=== PATIENT | female | born 1960 | race Native Hawaiian/Other Pacific Islander ===

== ENCOUNTER → 2016-04-10 | Day surgery (SDC) | payer BC ==
[~2016-04-10] MED LIST: ACETAMINOPHEN 1000 MG/100 ML VIAL IV ONE; ALPR.25 PO; AMAR4TAB PO; AMLO10TA2 PO; ASPI81CH3 CHEW; BOTU100P I-DERMAL; BUPIVACAINE/EPINEPHRINE 0.25% 50 ML VIAL ONE; CELE200C PO; FENO50TA PO; FOLI1TAB4 PO; HUMALOG SQ; LACTATED RINGER'S 1000 ML INJ 1,000 ML ONE; LANTUS2P SQ; LEUC10TA; LEVO.125 PO; LEXA20TA PO; LOSA100T PO; M2 M100C PO; MEPERIDINE HCL 25 MG/ML VIAL ONE; METF1000 PO; METH2.5T PO; MIDAZOLAM HCL 2 MG/2 ML VIAL ONE; MULT1TAB46 PO; ONDANSETRON HCL 4 MG/2 ML VIAL IV PUSH ONE; PLAQ200T PO; PROPOFOL 200 MG/20 ML AMP IV ONE; RESP: ALBUTEROL 2.5 MG/3 ML NEB (SCH) ONE; ROSU5 PO; SODIUM CHLOR 0.9% 1000 ML BAG IV ONE; VITA1000 PO; [UNRECOGNIZED DRUG - CODE] PO; ceFAZolin 2 GM PREMIX 50 ML ONE; metroNIDAZOLE 500 MG INJ 100 ML IV ONE; oxyCODONE/ACETAMINOPHEN 5 MG/325 MG TAB ONE
--- NOTE | 2016-04-10 09:35 | TN ---
cc: LUCINA RODRIGUEZ M.D. DATE OF SURGERY: 04/10/2016 PREOPERATIVE DIAGNOSIS 1. Biliary dyskinesia. 2. Non-alcoholic steatohepatitis. POSTOPERATIVE DIAGNOSES 1. Biliary dyskinesia. 2. Non-alcoholic steatohepatitis. PROCEDURE 1. Laparoscopic cholecystectomy. 2. Laparoscopic-assisted liver biopsy. SURGEON Dr. Lucina Rodriguez ANESTHESIA General. HIDE OR SKIN BUFFER Celeste Mcogvern, MANAGER E [employer] INDICATIONS This is a pleasant 55-year-old woman who has had several episodes of pain in the back that she believes were made worse by foods that she ate, specifically fatty foods. An ultrasound was normal. A HIDA scan reproduced similar yet less intense symptoms and her ejection fraction was minimal. Prior CT scan was negative. Dr. Francisco J Andrade has seen her and recommends surgical evaluation for laparoscopic cholecystectomy and liver biopsy for known history of steatohepatitis. INTRAOPERATIVE FINDINGS Gallbladder without significant inflammatory adhesions removed and sent to pathology. [place] liver biopsy specimens sent for permanent pathology. ESTIMATED BLOOD LOSS Less than 10 mL. DESCRIPTION OF PROCEDURE IN DETAIL The patient was identified as Rowan Prieto, taken to the operating room and placed in supine position. Sequential compression devices were placed on bilateral lower extremities. Following induction of adequate general endotracheal anesthesia the patient's abdomen was prepped and draped in the usual sterile fashion with Betadine. A timeout procedure was performed. Following completion of the timeout procedure to everyone's satisfaction within the room, 0.25% Marcaine with epinephrine was placed at each incision site. A small transverse supraumbilical incision was made with a scalpel. Dissection continued posteriorly to the level of the midline fascia in the supraumbilical position. The base of the umbilicus was retracted anteriorly. The fascia was incised in a vertical fashion allowing for entry into the peritoneal cavity with the surgeon's finger. The [employer] balloon Willy trocar was placed in the peritoneal cavity, its balloon inflated with CO2 insufflation until a level of 15 mmHg ensued. The patient was placed in a reverse Trendelenburg position turned to the left and two upper abdominal 5 mm trocars were placed in the peritoneal cavity under direct laparoscopic view after incision of the skin with a scalpel. The gallbladder is immediately identified. There were no inflammatory adhesions. The gallbladder is retracted superiorly and anteriorly. The gallbladder was then removed from the gallbladder fossa in the dome-down technique using the Harmonic scalpel. A nice peritoneal plane was identified which allowed for smooth removal of the gallbladder from the gallbladder fossa. Down at the gallbladder cystic duct junction there was excess fatty tissue which was carefully dissected through to allow for identification of cystic arterial branch which was divided with the Harmonic scalpel and the cystic duct which was isolated from surrounding tissues, ligated proximally and distally with 0-PDS Endoloops and divided between the Endoloops. The gallbladder was simply removed through the supraumbilical fascial port incision site and passed off the field for pathologic evaluation. The gallbladder fossa was examined. The cystic duct ligature remained intact. There was no bilious or bloody drainage. Using the cloudswave liver biopsy device, this was placed through the 5 mm trocar superiorly and three separate fires were taken of the right lobe of the liver at its junction with the left lobe of the liver. Three separate slivers of tissue were removed. The Harmonic scalpel was used for hemostasis. A suction device was used to suction out any of the bloody drainage. About 30 cc of local anesthetic was placed overlying the biopsy sites and in the subhepatic space. The trocars were removed under direct visualization. There was no evidence of bleeding from the trocar sites and there was no evidence of bleeding from the liver biopsy sites. The abdomen was actively desufflated through the supraumbilical port which was then removed. The supraumbilical fascial incision was closed with interrupted 0 Vicryl sutures. The port sites were irrigated with saline. The skin incisions were approximated with 4-0 Monocryl subcuticular sutures. Dressings were applied with Mastisol and half-inch brown Steri-Strips. The patient tolerated the procedure without apparent complication. Sponge, needle and instrument counts were correct at the end of the case. This procedure was assisted by my MANAGER E [employer]CE. The specific skill set of the nurse practitioner was medically necessary to facilitate the efficiency of the case and to provide excellent visualization of important anatomic structures. During the procedure, the instructor adjunct surgical technician was at the back table providing appropriate instruments while the nurse practitioner was directly assisting me through the entirety of the surgery. MD KATE Pearce/LARRY 9:09 AM /9:22 AM NOREEN
== END | disposition home or self-care (01) ==
LOC: ESDC 06:37
PROVIDERS: ATTEND Surgery Trauma Surgery
DX: K82.8 Other specified diseases of gallbladder (principal); K75.81 Nonalcoholic steatohepatitis (NASH); E11.9 Type 2 diabetes mellitus without complications; Z79.4 Long term (current) use of insulin
CPT/HCPCS: 00790; 47001; 47562; 82948; 88304; 88307; 88313; J0131; J0690; J2175; J2250; J2405; J3010; J7030; J7120; J7613